=== PATIENT | male | born 1960 | race Caucasian/White ===

== ENCOUNTER 2023-04-09 11:29 | Observation (INO) | payer OTHER ==
[~2023-04-09 11:29] MED LIST: Iopamidol 300 61% 100 ML VIAL FS ONE
[2023-04-09 12:06] LABS: #Basophils 0.1 10x3/uL (0.0-0.2); #Eosinphils 0.1 10x3/uL (0.0-0.5); #Monocytes 0.9 10x3/uL (0.0-1.1); #Neutrophils 3.9 10x3/uL (1.5-8.4); %Basophils 0.7 % (0.0-2.0); %Eosinophils 1.7 % (0.0-6.0); %Monocytes 11.4 % (0.0-10.0); %Neutrophils 52.9 % (40.0-75.0); Hematocrit 44.4 % (38.8-50.0); Hemoglobin 15.5 g/dL (13.5-17.5); Mean Corpuscular HGB CONC 34.9 g/dL (32.0-36.0); Mean Corpuscular Hemoglobin 31.7 pg (27.0-33.0); Mean Corpuscular Volume 90.8 fl (81.2-95.1); Mean Platelet Volume 8.7 fl (7.4-10.4); Platelet Count 206 10x3/uL (150-450); RBC Distribution Width 12.5 % (11.5-14.5); Red Blood Cell (RBC) Count 4.89 10x6/uL (4.32-5.72); White Blood Cell (WBC) Count 7.5 10x3/uL (3.5-10.5)
[2023-04-09 12:28] LABS: ALT (SGPT) 76 U/L (8-55); AST (SGOT) 56 U/L (5-34); Albumin 4.6 g/dL (3.4-4.8); Alkaline Phosphatase 44 U/L (40-110); Anion Gap 14 mmol/L (10-20); BUN (Urea Nitrogen) 16 mg/dL (8.4-25.7); Bilirubin, Total 0.6 mg/dL (0.2-1.2); Calc. Creatinine Clearance 0 mL/min (70-130); Calcium 9.6 mg/dL (7.8-10.44); Carbon Dioxide 26 mmol/L (23-31); Chloride 100 mmol/L (98-107); Estimated GFR 73; Globulin 3.3 g/dL (2.4-3.5); Glucose 122 mg/dL (80-115); Lipase 30 U/L (8-78); Potassium 5.1 mmol/L (3.5-5.1); Protein, Total 7.9 g/dL (5.8-8.1); Sodium 135 mmol/L (136-145)
[2023-04-09 12:34] LABS: Troponin I 0.024 ng/mL (< 0.028)
[2023-04-09] MEDS ORDERED: Ondansetron PF 4 MG/2 ML Vial ONE (12:48)
[2023-04-09] MEDS ORDERED: Morphine 4 MG/ML VIAL ONE ×2 (12:48→17:36)
[2023-04-09 14:00] LABS: SARS-CoV-2 NAA Rapid Test Not Detected (NotDetected)
[2023-04-09 15:45] LABS: Troponin I 0.032 ng/mL (< 0.028)
[2023-04-09] MEDS ORDERED: Nitroglycerin 0.4 MG TAB 1 EACH ONE (16:40)
[2023-04-09] MEDS ORDERED: HYDROcodone/Acetaminophen 7.5/325 mg Tablet PO PRN ×2 (18:44)
[2023-04-09] MEDS ORDERED: Acetaminophen 325 MG TAB PO PRN (18:44)
[2023-04-09] MEDS ORDERED: Dextrose 5% in Water 1,000 ML IV PRN (18:49)
[2023-04-09] MEDS ORDERED: Dextrose 50% Abboject 50 ML SYRINGE SLOW IVP PRN (18:49)
[2023-04-09] MEDS ORDERED: Glucagon 1 MG/ML KIT IM PRN (18:49)
[2023-04-09] MEDS ORDERED: HumaLOG 300 UNITS/3 ML VIAL SC PRN (18:49)
[2023-04-09 18:50] LABS: Troponin I 0.018 ng/mL (< 0.028)
[2023-04-09] MEDS ORDERED: hydrALAZINE 10 MG TAB PO PRN (18:50)
[2023-04-09 20:45] VITALS: BMI 35.6
[2023-04-09] MEDS ORDERED: Metoprolol Tartrate 25 MG TAB ONE (20:58)
[2023-04-09 21:09] LABS: Troponin I 0.026 ng/mL (< 0.028)
[2023-04-09] MEDS: Metoprolol Tartrate 25 MG TAB PO SCH (21:36)
[2023-04-10 04:26] LABS: Bilirubin Neg (Negative); Blood, Urine 10 (Negative); Clarity Clear (Clear); Glucose, Urine (Dipstick) Normal (Negative); Ketone, Urine Negative (Negative); Leukocyte Negative (Negative); Nitrite Negative (Negative); Protein, Urine (Dipstick) 30 mg/dl (Neg-Trace); Specific Gravity, Urine 1.025 (1.005-1.030)
[2023-04-10 04:34] LABS: Bacteria/HPF None Seen HPF (None Seen); RBC/HPF 0-3 HPF (0-3); Squamous Epithelial 0-3 HPF (0-3); WBC/HPF None Seen HPF (0-3)
[2023-04-10 04:42] LABS: Cardiac Risk 6.7 (Less than 4.5)
[2023-04-10] MEDS: Aspirin Chewable 81 MG TAB PO SCH (08:26)
[2023-04-10 13:48] VITALS: BP 137/82; TEMP 98.7
[2023-04-10 14:42] LABS: Hemoglobin A1c 5.8 % (4.0-6.0)
[2023-04-10] MEDS ORDERED: metFORMIN 500 MG TAB PO SCH (17:00)
[2023-04-11] MEDS ORDERED: Aspirin 81 mg Enteric Coated Tablet PO SCH (09:00)
[2023-04-11] MEDS ORDERED: Atorvastatin Calcium 40 MG TAB PO SCH (09:00)
== END 2023-04-10 16:09 | disposition home or self-care (01) ==
LOC: CSHERS 11:29 → CSHERHOLD 17:25 → INTOOBSV 17:25 → CSHTELE 04-10 00:36
PROVIDERS: ADMIT Internal Medicine; ATTEND Student in an Organized Health Care Education/Training Program
PROC: B24BZZZ Ultrasonography of Heart with Aorta (ICD-10-PCS; principal; 2023-04-10)
DX: R07.2 Precordial pain (principal); R05.3 Chronic cough; I10 Essential (primary) hypertension; E78.5 Hyperlipidemia, unspecified; E11.9 Type 2 diabetes mellitus without complications; G47.33 Obstructive sleep apnea (adult) (pediatric); F10.90 Alcohol use, unspecified, uncomplicated; I35.0 Nonrheumatic aortic (valve) stenosis; Z90.89 Acquired absence of other organs; Z98.890 Other specified postprocedural states; Z79.84 Long term (current) use of oral hypoglycemic drugs; Z79.899 Other long term (current) drug therapy
CPT/HCPCS: 36415; 36416; 71045; 74177; 76705; 80053; 80061; 81001; 83036; 83690; 83880; 84484; 85025; 93005; 93010; 93306; 96374; 96375; 96376; G0378; J1815; J2270; J2405; Q9967